=== PATIENT | female | born 1995 | race Caucasian/White ===

== ENCOUNTER 2018-06-19 10:22 | Emergency (ER) | payer SELFPAY ==
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
[2018-06-19] MEDS ORDERED: Ibuprofen TAB* 600 MG PO ONE (11:36)
[2018-06-19 14:25] VITALS: BP 115/65
== END 2018-06-19 14:24 | disposition home or self-care (01) ==
LOC: ED 10:22
DX: S29.012A Strain of muscle and tendon of back wall of thorax, initial encounter (principal); V47.5XXA Car driver injured in collision with fixed or stationary object in traffic accident, initial encounter; Y92.410 Unspecified street and highway as the place of occurrence of the external cause
CPT/HCPCS: 36415; 72070; 84702; 99282; A9270-GY